=== PATIENT | female | born 1995 | race African-American/Black ===

== ENCOUNTER → 2021-07-12 14:25 | Observation (INO) ==
[2021-07-12 11:47] LABS: Amorphous Sediment,Urine Few per hpf (None-Few); Bacteria,Urine Few per hpf (None-Few); Bilirubin,Urine Negative (Negative); Blood,Urine Negative (Negative); Clarity,Urine Turbid (Clear); Color,Urine Light-Yellow (Yellow); Glucose,Urine (UA) Normal (Normal); Ketones,Urine Negative (Negative); Leukocyte Esterase,Urine Negative (Negative); Mucus,Urine Few per lpf (None-Few); Nitrite,Urine Negative (Negative); Protein,Urine Negative (Neg-Trace); RBC,Urine 0-3 per hpf (0-3); Specific Gravity,Urine 1.016 (1.010-1.025); Squamous Epithelial Cell,Urine Few per hpf (None-Few); Transitional Epi Cells,Urine Few per hpf (None-Few); Urobilinogen,Urine Normal (Normal); WBC,Urine 0-3 per hpf (0-3)
== END | disposition home or self-care (01) ==
LOC: 1NENULAB
PROVIDERS: ADMIT Registered Nurse; ATTEND Registered Nurse

== ENCOUNTER 2021-10-01 04:29 | Inpatient (IN) ==
[~2021-10-01 04:29] MED LIST: *HR* Nalbuphine 10 MG/ML AMPUL IV PRN; Famotidine 20 MG/2 ML VIAL IVP PRN; Metoclopramide 10 MG/2 ML VIAL IVP PRN; Naloxone 0.4 MG/ML INJ IVP PRN; Ondansetron 4 MG/2 ML VIAL IVP PRN
[2021-10-01] MEDS ORDERED: Ringers Solution, Lactated 1,000 ML IVC SCH (04:30)
[2021-10-01 05:20] LABS: Basophils % 0.3 %; Hematocrit 33.3 % (35.3-44.9); Hemoglobin 9.7 g/dL (11.5-15.4); Lymphocytes % 16.6 %; Mean Corpuscular HGB Conc 29.1 g/dL (31.6-35.5); Nucleated Red Blood Cells 0.2 /100 WBC (0); Red Cell Distribution Width 16.8 % (11.5-14.5)
[2021-10-01 05:22] LABS: Eosinophils # 0.1 K/mcL (0.0-0.6); Eosinophils % 0.7 %; Immature Granulocytes % 1.6 % (0-4); Immature Platelets 36.5 % (1.1-6.1); Lymphocytes # 1.9 K/mcL (0.6-4.6); Mean Corpuscular Volume 82.2 fL (83.0-100.0); Monocytes # 0.9 K/mcL (0.0-1.3); Neutrophils # 8.4 K/mcL (1.6-8.9); Platelet Count 121 K/mcL (140-400); Red Blood Count 4.05 M/mcL (3.82-4.97); Segmented Neutrophils % 72.8 %; White Blood Count 11.5 K/mcL (4.3-11.1)
[2021-10-01 05:29] LABS: Amphetamine Screen,Urine Negative ng/mL (Cutoff=1000); Barbiturate Screen,Urine Negative ng/mL (Cutoff=200); Benzodiazepines Screen,Urine Negative ng/mL (Cutoff=200); Cannabinoid Screen,Urine Negative ng/mL (Cutoff = 50); Cocaine Screen,Urine Negative ng/mL (Cutoff= 300); Opiate Screen,Urine Negative ng/mL (Cutoff=300); Phencyclidine Screen,Urine Negative ng/mL (Cutoff=25)
[2021-10-01] MEDS ORDERED: EPHEDrine 50 MG/ML VIAL IVP PRN (05:35)
[2021-10-01] MEDS ORDERED: *HR* FentaNYL (PF) 100 MCG/2 ML VIAL EP ONE (05:35)
[2021-10-01] MEDS ORDERED: Ropivacaine/PF 0.2% 20 ML VIAL EP ONE (05:35)
[2021-10-01] MEDS ORDERED: Epidural Premix (fent/bupiv) 110 ML EP ONE (05:42)
[2021-10-01] MEDS ORDERED: Epidural Premix (fent/bupiv) 110 ML EP SCH (05:45)
[2021-10-01 06:00] LABS: Influenza A PCR Negative (Negative); Influenza B PCR Negative (Negative); Resp. Syncytial Virus PCR Negative (Negative)
[2021-10-01 06:01] LABS: SARS-CoV-2 by PCR (In House) Negative (Negative)
[2021-10-01] MEDS ORDERED: Benzocaine/Menthol 56 GM AEROSOL SPRAY TP PRN (11:21)
[2021-10-01] MEDS ORDERED: Ondansetron ODT 4 MG TAB.RAPDIS SL PRN (11:21)
[2021-10-01] MEDS ORDERED: Lanolin 7 G OINT...G. TP PRN (11:21)
[2021-10-01] MEDS ORDERED: Oxytocin 20 units/ LR 1000 mL 20 UNIT/1,000 ML BAG IVC SCH (11:21)
[2021-10-01] MEDS: Ibuprofen 600 MG TABLET PO SCH ×2 (14:21→21:49)
[2021-10-01] MEDS: Acetaminophen 325 MG TABLET PO SCH ×2 (14:22→21:49)
[2021-10-02 05:29] VITALS: O2SAT 98
[2021-10-02] MEDS: Acetaminophen 325 MG TABLET PO SCH ×2 (05:34→08:43)
[2021-10-02] MEDS: Ibuprofen 600 MG TABLET PO SCH ×2 (05:34→08:43)
[2021-10-02 05:49] LABS: Basophils % 0.3 %; Hemoglobin 8.2 g/dL (11.5-15.4)
[2021-10-02 05:51] LABS: Eosinophils # 0.1 K/mcL (0.0-0.6); Eosinophils % 0.9 %; Hematocrit 28.1 % (35.3-44.9); Immature Platelets 30.3 % (1.1-6.1); Lymphocytes # 1.9 K/mcL (0.6-4.6); Lymphocytes % 16.7 %; Mean Corpuscular HGB Conc 29.2 g/dL (31.6-35.5); Mean Corpuscular Volume 82.2 fL (83.0-100.0); Monocytes # 1.1 K/mcL (0.0-1.3); Monocytes % 9.9 %; Neutrophils # 8.1 K/mcL (1.6-8.9); Red Blood Count 3.42 M/mcL (3.82-4.97); Segmented Neutrophils % 71.2 %; White Blood Count 11.4 K/mcL (4.3-11.1)
[2021-10-02 06:05] LABS: Platelet Count 91 K/mcL (140-400)
[2021-10-02 08:31] VITALS: BP 118/68; PULSE 86; TEMP 97.9
[2021-10-02] MEDS ORDERED: Prenatal Vit/FA 1 EACH TABLET PO SCH (09:00)
== END 2021-10-02 12:50 | disposition home or self-care (01) | DRG 806 ==
LOC: 1NENULAB → 1NENUOBS 12:52
PROVIDERS: ADMIT Advanced Practice Midwife; ATTEND Advanced Practice Midwife